=== PATIENT | male | born 1945 | race Two or more races ===

== ENCOUNTER 2019-04-01 12:15 | Outpatient (CLI) | payer OTHER | END 2019-04-01 13:00 | disposition home or self-care (01) | LOC: NUCLEAR 12:15 | DX: C64.2 Malignant neoplasm of left kidney, except renal pelvis (principal) | CPT/HCPCS: 78708; A9539; J1940 ==

== ENCOUNTER 2019-04-06 07:43 | Outpatient (CLI) | payer OTHER | END 2019-04-06 09:12 | disposition home or self-care (01) | LOC: TOM 07:43 | DX: C64.2 Malignant neoplasm of left kidney, except renal pelvis (principal) | CPT/HCPCS: 74178; Q9965 ==

== ENCOUNTER → 2019-07-15 | Outpatient (CLI) | payer OTHER | END | disposition home or self-care (01) | LOC: NUCLEAR 08:28 | DX: I25.10 Atherosclerotic heart disease of native coronary artery without angina pectoris (principal); J45.909 Unspecified asthma, uncomplicated | CPT/HCPCS: 78452; 93017; A9500; J0153 ==

== ENCOUNTER 2020-04-23 07:30 | Inpatient (IN) | payer OTHER ==
[~2020-04-23] VITALS: Ht 177.8 cm; Wt 78.9 kg
[2020-04-23] MEDS ORDERED: ELIQUIS2.5 MG PO (10:55)
[2020-04-23] MEDS ORDERED: TOPROL XL25 M1 PO (10:56)
[2020-04-23] MEDS ORDERED: HYDRALAZINE HCL25 MG PO (10:56)
[2020-04-23] MEDS ORDERED: MONTELUKAST SOD10 MG PO (10:56)
[2020-04-23] MEDS ORDERED: SIMVASTATIN20 MG PO (10:56)
[2020-04-23] MEDS ORDERED: FLUOXETINE HCL20 MG PO (10:57)
[2020-04-23] MEDS ORDERED: OTEZLA30 MG PO (10:58)
[2020-04-27] MEDS ORDERED: GUMSOL SPRAY30 ML (08:02)
[2020-04-27] MEDS ORDERED: FLUOROMETHOLONE5 ML (08:03)
[2020-04-27] MEDS ORDERED: HALOBETASOL PRO15 GM (08:03)
[2020-04-27] MEDS ORDERED: FLONASE16 GM (08:03)
== END 2020-05-06 13:38 | disposition home or self-care (01) | DRG 657 ==
LOC: SURG 04-27 05:36 → SURH 04-27 05:36 → O/R 04-27 05:36 → SURH 04-27 07:00 → SURG 04-27 11:52 → SURH 04-29 09:31
PROVIDERS: ADMIT Urology; ATTEND Urology
PROC: 0TT14ZZ Resection of Left Kidney, Percutaneous Endoscopic Approach (ICD-10-PCS; principal; 2020-04-27 07:00)
PROC: 0W9G0ZZ Drainage of Peritoneal Cavity, Open Approach (ICD-10-PCS; 2020-04-28)
PROC: 4A033R1 Measurement of Arterial Saturation, Peripheral, Percutaneous Approach (ICD-10-PCS; 2020-04-28)
PROC: 30233N1 Transfusion of Nonautologous Red Blood Cells into Peripheral Vein, Percutaneous Approach (ICD-10-PCS; 2020-04-28)
DX: C64.2 Malignant neoplasm of left kidney, except renal pelvis (principal); J44.1 Chronic obstructive pulmonary disease with (acute) exacerbation; E87.2 Acidosis; K91.871 Postprocedural hematoma of a digestive system organ or structure following other procedure; Z95.0 Presence of cardiac pacemaker; I10 Essential (primary) hypertension; I25.10 Atherosclerotic heart disease of native coronary artery without angina pectoris; Y83.8 Other surgical procedures as the cause of abnormal reaction of the patient, or of later complication, without mention of misadventure at the time of the procedure